=== PATIENT | male | born 2000 | race Caucasian/White ===

== ENCOUNTER 2023-08-13 05:29 | Emergency (ER) | payer OTHER ==
--- NOTE | 2023-08-13 05:38 | ED Physician Documentation ---
History of Present Illness - Stated complaint Stated Complaint: FONTANEZ/SORE THROAT - History obtained from History obtained from: Patient - Additonal information Additional information: HPI from patient. Patient c/o generalized weakness, fatigue, sore throat, bifrontal FONTANEZ, chills, lightheadedness, rhinorrea. Symptoms were gradual onset last night, gradually increasing in severity. Denies dyspnea, cough, abdominal pain, n/v/diarrhea, dysuria. Has not taking his temperature; not aware of fevers. UTD on immunizations. Review of Systems Constitutional: reports: Chills, Myalgias, Fatigue Nose: reports: Rhinorrhea / runny nose Throat: reports: Sore throat Cardiac: denies: Chest pain / pressure Respiratory: denies: Dyspnea, Cough GI: denies: Abdominal Pain, Nausea, Vomiting Neurologic: reports: Generalized weakness, Headache. denies: Focal weakness, Numbness PD PAST MEDICAL HISTORY - Past Medical History Past Medical History: No - Past Surgical History Past Surgical History: Yes HEENT: Tonsil/Adenoidectomy - Present Medications Home Medications: Ambulatory Orders Medication Instructions Recorded Confirmed No Known Home Medications 08/13/23 08/13/23 - Allergies Allergies/Adverse Reactions: Allergies Allergy/AdvReac Type Severity Reaction Status Date / Time No Known Drug Allergies Allergy Verified 08/13/23 06:06 PD ED PE NORMAL - Vitals Vital signs reviewed: Yes - General General: Alert and oriented X 3, No acute distress, Well developed/nourished - HEENT HEENT: Ears normal, Moist mucous membranes, Other (mild posterior o/p erythema) - Neck Neck: Supple, no meningeal sign - Cardiac Cardiac: RRR, No murmur - Respiratory Respiratory: No respiratory distress, Clear bilaterally Results - Vitals Vitals: Vital Signs - 24 hr 08/13/23 08/13/23 05:45 05:57 Temperature 37.4 C 37.4 C Heart Rate 81 81 Respiratory 17 17 Rate Blood Pressure 130/87 H 130/87 H O2 Saturation 99 99 Oxygen O2 Source Room air - Labs Labs: Laboratory Tests 08/13/23 08/13/23 05:47 05:47 Nasal Adenovirus (PCR) NOT DETECTED Nasal B. parapertussis DNA (PCR) NOT DETECTED Nasal Coronavir 229E PCR NOT DETECTED Nasal Coronavir HKU1 PCR NOT DETECTED Nasal Coronavir NL63 PCR NOT DETECTED Nasal Coronavir OC43 PCR NOT DETECTED Nasal Enterovir/Rhinovir PCR NOT DETECTED Nasal Influenza B PCR NOT DETECTED Nasal Influenza A PCR NOT DETECTED Nasal Parainfluen 1 PCR NOT DETECTED Nasal Parainfluen 2 PCR NOT DETECTED Nasal Parainfluen 3 PCR NOT DETECTED Nasal Parainfluen 4 PCR NOT DETECTED Nasal RSV (PCR) NOT DETECTED Nasal B.pertussis DNA PCR NOT DETECTED Nasal C.pneumoniae (PCR) NOT DETECTED Beck Human Metapneumo PCR NOT DETECTED Nasal M.pneumoniae (PCR) NOT DETECTED Nasal SARS-CoV-2 (PCR) NOT DETECTED Group A Strep Rapid Negative PD Medical Decision Making - ED course Complexity details: considered differential, d/w patient ED course: Rapid strep negative. Respiratory PCR panel negative for COVID, influenza, RSV, and other viruses tested on this panel. No other testing indicated at this time (lungs CTA bilaterally, NAD, no chest/abdominal c/o). Despite negative PCR panel, HPI is still highly s/o viral syndrome; accordingly, I advised him to rest at home (work excuse provided) and stay hydrated, anticipate significant improvement/resolution within 2-3 days. Otherwise to follow up with PCP.Return precautions reviewed Departure - Departure Disposition: 01 Home, Self Care Clinical Impression: Viral syndrome Condition: Good Instructions: ED Viral Syndrome Comments: Your strep and viral tests were all negative. As we discussed, your symptoms are still quite consistent with a viral infection. At this time, I do not suspect an alternative diagnosis. Your symptoms should resolve within the next few days. Forms: Activity restrictions Discharge Date/Time: 08/13/23 07:50
[2023-08-13 06:02] VITALS: BP 130/87; O2SAT 99
[2023-08-13 06:27] LABS: RAPID STREP SCREEN Negative (Negative)
[2023-08-13 07:11] LABS: CORONAVIRUS 229E-RESP PCR NOT DETECTED; CORONAVIRUS HKU1-RESP PCR NOT DETECTED
[2023-08-13 07:12] LABS: B. PARAPERTUSSIS- RESP PCR PAN NOT DETECTED; B. PERTUSSIS- RESP PCR PANEL NOT DETECTED; C. PNEUMONIAE- RESP PCR PANEL NOT DETECTED; CORONAVIRUS NL63-RESP PCR NOT DETECTED; CORONAVIRUS OC43-RESP PCR NOT DETECTED; HUMAN METAPNEUMOVIRUS NOT DETECTED; INFLUENZA A- RESP PCR PANEL NOT DETECTED; INFLUENZA B - RESP PCR PANEL NOT DETECTED; M. PNEUMONIAE- RESP PCR PANEL NOT DETECTED; PARAINFLUENZA VIRUS 1 NOT DETECTED; PARAINFLUENZA VIRUS 2 NOT DETECTED; PARAINFLUENZA VIRUS 3 NOT DETECTED; PARAINFLUENZA VIRUS 4 NOT DETECTED; RHINOVIRUS/ENTEROVIRUS NOT DETECTED; RSV- RESP PCR PANEL NOT DETECTED; SARS-CoV-2 -RESP PCR PANEL NOT DETECTED
== END 2023-08-13 07:50 | disposition home or self-care (01) ==
LOC: ED 05:29
DX: B34.9 Viral infection, unspecified (principal); Z11.52 Encounter for screening for COVID-19
CPT/HCPCS: 87070; 87430; 87633; 99283